=== PATIENT | female | born 1990 | race Caucasian/White ===

== ENCOUNTER 2017-09-29 12:00 | Inpatient (IN) | payer BC, SELFPAY ==
[2017-09-29 14:31] LABS: Absolute Monocytes 1.3 K/uL (0.1-1.3); Basophils % 0.1 % (0-1.3); Eosinophils % 1.9 % (0-4.4); Hematocrit 44.6 % (36.0-45.0); Lymphocytes % 13.6 % (15.3-44.8); MCH 28.5 pg (27.0-35.0); MCV 86.7 fL (80-100); MPV 7.6 fL (7.6-11.3); Monocytes % 8.9 % (3.3-12.3); Protime INR 1.18; RBC Red Blood Cell Count 5.15 M/uL (3.86-4.86)
[2017-09-29 14:42] LABS: Bicarbonate 26 mEq/L (21-31); Glucose Level 90 mg/dL (65-120); Potassium 3.6 mEq/L (3.6-5.0); Sodium Level 139 mEq/L (135-145)
[2017-09-29 14:49] LABS: ALT/SGPT 75 IU/L (10-60); AST/SGOT 51 IU/L (10-42); Albumin 4.7 g/dL (3.2-5.5); Alkaline Phosphatase 38 IU/L (42-121); BUN Blood Urea Nitrogen 7 mg/dL (6-20); Bilirubin Direct 0.2 mg/dL (0-0.2); Protein, Total 8.7 g/dL (6.0-8.3)
--- NOTE | 2017-09-29 14:51 | RAD REPORT ---
EXAM DESCRIPTION: RAD - Chest Single View - 09/29/2017 2:31 pm CLINICAL HISTORY: Difficulty breathing, shortness of breath COMPARISON: November 2011 TECHNIQUE: AP portable chest image was obtained 1418 hours . FINDINGS: Lungs are clear. Heart and vasculature are normal. No measurable pleural effusion and no p neumothorax. No gross bony abnormality seen. No acute aortic findings suspected. Right base opacifica tion on the prior study has cleared with no underlying mass or scarring remaining. Trachea is midline . No suspicious change from the prior study. IMPRESSION: No acute cardiopulmonary process.
[2017-09-29] MEDS ORDERED: CEFTRIAXONE/SWI 1gm 1 GM/10 ML SYR ONE (14:53)
[2017-09-29] MEDS ORDERED: METRONIDAZOLE 500mg IVPB 500 MG/100 ML BAG IV ONE (14:53)
[2017-09-29] MEDS ORDERED: KETOROLAC 30 MG/ML INJ ONE (15:05)
--- NOTE | 2017-09-29 15:24 | RAD REPORT ---
EXAM DESCRIPTION: CT - Soft Tissue Neck W/Contr - 09/29/2017 3:05 pm CLINICAL HISTORY: Infected tooth, soft tissue swelling, currently on antibiotic therapy TECHNIQUE: During dynamic enhancement using 100 milliliters nonionic IV contrast, axial 5 millimeter thick images of the neck were obtained. All CT scans are performed using dose optimization technique as appropriate and may include automated exposure control or mA/KV adjustment according to patient size. FINDINGS: Prominent area of soft tissue swelling and edema present along the medial margin of the ma ndible from midline to the angle of the mandible. No significant edema or soft tissue on the outer ma rgin of the mandible. No defined abscess or drainable fluid collections seen within the area of soft tissue swelling. The inflammatory changes do displace the musculature along the floor the mouth towar ds the midline. Patient has numerous small reactive type lymph nodes. Largest is 15 mm. Most are well under [address] in size. No necrotic or abscessed lymph nodes seen. No tonsillar abscess. No abnormal soft palate or base of the tongue abnormalities seen. Bilateral parotid and right submandibular glands are normal. Left submandibular gland may be minimall y secondarily involved by the left floor the mouth inflammatory process. No thyroid gland abnormality. Laryngeal structures are normal. No erosive or destructive bone process. Globes and orbital contents are normal. Mastoid air cells are clear. No worrisome paranasal sinus finding. There is some minimal ethmoid mucosal thickening. IMPRESSION: Prominent soft tissue edema and swelling along the medial margin of the mandible. No abs cess or drainable fluid collection. Numerous reactive type lymph nodes in the left-side of the neck with no necrotic or abscessed lymph n odes. No acute or destructive bone process.
[2017-09-29] MEDS ORDERED: NA CHLORIDE 0.9% 1,000 ML ONE (15:41)
--- NOTE | 2017-09-29 16:25 | ER ---
Nurse's Notes [facility] Name: Wei Davey Age: 27 yrs Sex: Female : 1990 Arrival Date: 09/29/2017 Time: 12:04 Bed 26 Private MD: Diagnosis: Cellulitis and abscess of mouth Presentation: 09/29 12:35 Presenting complaint: Patient states: " I am having trouble breathing. I have an ph infected tooth and I think I have a respiratory and sinus infection. I have been hospitalized for pneumonia before." Reports chest pain, cough, fever TMAX 103, SOB, dizziness, nausea, swelling to L side of jaw. Currently taking Clindamycin for dental infection. Transition of care: patient was not received from another setting of care. Onset of symptoms was September 29, 2017. Care prior to arrival: None. 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 - Social history:: Smoking status: Patient/guardian denies using tobacco. Screenin:20 Abuse screen: Denies threats or abuse. Denies injuries from another. Nutritional kr2 screening: No deficits noted. Tuberculosis screening: No symptoms or risk factors identified. Fall Risk None identified. Assessment: 13:20 General: Appears in no apparent distress. comfortable, well groomed, well developed, kr2 well nourished, Behavior is calm, cooperative, appropriate for age. Pain: Complains of pain in left jaw, chest Pain radiates to neck Pain currently is 7 out of 10 on a pain scale. Quality of pain is described as aching, "tight feeling" Pain began gradually, Is continuous, Alleviated by medications. Neuro: Level of Consciousness is awake, alert, obeys commands, Oriented to person, place, time, situation, Appropriate for age. Cardiovascular: Heart tones S1 S2 present Capillary refill < 3 seconds in bilateral fingers Patient's skin is warm and dry. Respiratory: Reports cough that is productive, Airway is patent Respiratory effort is even, unlabored, Respiratory pattern is regular, symmetrical. GI: Abdomen is flat, non-distended. : No signs and/or symptoms were reported regarding the genitourinary system. EENT: Nares are clear bilaterally Oral mucosa is moist. Derm: Skin is intact, is healthy with good turgor, Skin is pink, warm \\T\\ dry. Musculoskeletal: Circulation, motion, and sensation intact. 15:25 Reassessment: Patient and/or family updated on plan of care and expected duration. Pain kr2 level reassessed. Patient is alert, oriented x 3, equal unlabored respirations, skin warm/dry/pink. States pain was relieved with Toradol. 16:30 Reassessment: Patient appears in no apparent distress at this time. Patient and/or kr2 family updated on plan of care and expected duration. Pain level reassessed. Patient is alert, oriented x 3, equal unlabored respirations, skin warm/dry/pink. 17:13 Reassessment: Patient appears in no apparent distress at this time. Patient and/or kr2 family updated on plan of care and expected duration. Pain level reassessed. Patient is alert, oriented x 3, equal unlabored respirations, skin warm/dry/pink. Patient denies pain at this time. Vital Signs: 12:43 BP 162 / 106; Pulse 117; Resp 20; Temp 98.2(O); Pulse Ox 97% on R/A; Weight 127.01 kg; ph Height 5 ft. 8 in. (172.72 cm); Pain 5/10; 15:27 BP 145 / 96; Pulse 95; Resp 17; Pulse Ox 97% on R/A; kr2 17:13 BP 111 / 96; Pulse 92; Resp 17; Pulse Ox 99% on R/A; kr2 12:43 Body Mass Index 42.57 (127.01 kg, 172.72 cm) ph ED Course: 12:04 Patient arrived in ED. as 12:39 Triage completed. ph 12:44 Arm band placed on. EKG completed in triage. Results shown to MD. ph 13:10 Adam Winchester MD is Attending Physician. gs 13:15 Patient has correct armband on for positive identification. Placed in gown. Bed in low kr2 position. Call light in reach. Side rails up X2. Adult w/ patient. traffic monitor specialist on. Pulse ox on. NIBP on. Door closed. Lights dimmed. Warm blanket given. Head of bed elevated. 13:15 Patient maintains SpO2 saturation greater than 95% on room air. kr2 13:20 Leigha Rivera, BENNY is Primary Nurse. kr2 14:28 X-ray completed. Portable x-ray completed in exam room. Patient tolerated procedure kp1 well. 14:29 Radiology exam delayed due to test not completed at this time. nb1 14:39 Urine collected: clean catch specimen, johanna colored. dh3 15:04 CT completed. Patient tolerated procedure well. Patient moved back from CT. nb1 16:20 Janet Fowler MD is Hospitalizing Provider. gs 17:14 No provider procedures requiring assistance completed. Patient admitted, IV remains in kr2 place. Administered Medications: 14:42 Drug: Rocephin - (cefTRIAXone) 1 grams Route: IVPB; Infused Over: 30 mins; Site: right kr2 antecubital; 15:00 Follow up: Response: No adverse reaction; IV Status: Completed infusion kr2 14:42 Drug: Flagyl 500 mg Volume: 100 ml; Route: IVPB; Rate: 200 ml/hr; Infused Over: 30 kr2 mins; Site: right antecubital; 16:00 Follow up: Response: No adverse reaction; IV Status: Completed infusion kr2 14:48 Drug: TORadol 30 mg Route: IVP; Site: right antecubital; kr2 15:25 Follow up: Response: No adverse reaction; Pain is decreased kr2 15:07 CANCELLED (Duplicate Order): TORadol 30 mg IVP once gs 15:25 Drug: NS 0.9% 1000 ml Route: IV; Rate: 1 bolus; Site: right antecubital; kr2 17:37 Follow up: Response: No adverse reaction; IV Status: Completed infusion kr2 Point of Care Testing: Blood Glucose: 14:03 Blood Glucose: 87 mg/dL; dh3 Ranges: Outcome: 16:24 Decision to Hospitalize by Provider. gs 17:15 Condition: stable kr2 17:35 Admitted to Tele accompanied by tech, via wheelchair, room 220, with chart. kr2 17:35 Instructed on the need for admit, Demonstrated understanding of instructions. 17:38 Patient left the ED. kr2 Signatures: Natasha Krueger Patricia, RN RN ph Eli Lauren kp1 Melba Ryan 3 Adam Winchester MD MD Niecy Ortiz 1 Leigha Rivera, RN RN kr2 Corrections: (The following items were deleted from the chart) 12:43 12:35 Presenting complaint: Patient states: " I am having trouble bleeding. I have an ph infected tooth and I think I have a respiratory and sinus infection. I have been hospitalized for pneumonia before." Reports chest pain, cough, fever TMAX 103, SOB, dizziness, nausea, swelling to L side of jaw. Currently taking Clindamycin for dental infection. ph 15:35 15:27 Pulse 95bpm; Resp 17bpm; Pulse Ox 97% RA; kr2 kr2
--- NOTE | 2017-09-29 16:25 | EDPHYS ---
Physician Documentation [facility] Name: Wei Davey Age: 27 yrs Sex: Female : 1990 Arrival Date: 09/29/2017 Time: 12:04 Bed 26 Private MD: ED Physician Adam Winchester HPI: 09/29 16:15 This 27 yrs old Female presents to ER via Ambulatory with complaints of gs Fever, facial swelling. 16:17 The patient presents with swelling. The problem is located in the left jaw. Onset: The gs symptoms/episode began/occurred 3 day(s) ago. Duration: The symptoms are continuous. Modifying factors: the symptoms are aggravated by opening mouth. Associated signs and symptoms: Pertinent positives: dysphagia, fever, pain, swelling. Severity of symptoms: At their worst the symptoms were severe, in the emergency department the symptoms are unchanged. The patient has not experienced similar symptoms in the past. The patient has been recently seen by a physician: dr davis on saturday. 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 - Social history:: Smoking status: Patient/guardian denies using tobacco. ROS: 16:17 All other systems are negative. gs 16:17 Respiratory: Positive for cough. gs Exam: 16:17 Constitutional: The patient appears alert, awake. gs 16:17 Head/Face: Normocephalic, atraumatic. Eyes: Pupils equal round and reactive to light, gs extra-ocular motions intact. Lids and lashes normal. Conjunctiva and sclera are non-icteric and not injected. Cornea within normal limits. Periorbital areas with no swelling, redness, or edema. Chest/axilla: Normal chest wall appearance and motion. Nontender with no deformity. No lesions are appreciated. Cardiovascular: Regular rate and rhythm with a normal S1 and S2. No gallops, murmurs, or rubs. Normal PMI, no JVD. No pulse deficits. Respiratory: Lungs have equal breath sounds bilaterally, clear to auscultation and percussion. No rales, rhonchi or wheezes noted. No increased work of breathing, no retractions or nasal flaring. Abdomen/GI: Soft, non-tender, with normal bowel sounds. No distension or tympany. No guarding or rebound. No evidence of tenderness throughout. Back: No spinal tenderness. No costovertebral tenderness. Full range of motion. 16:17 Skin: Warm, dry with normal turgor. Normal color with no rashes, no lesions, and no evidence of cellulitis. MS/ Extremity: Pulses equal, no cyanosis. Neurovascular intact. Full, normal range of motion. Neuro: Awake and alert, GCS 15, oriented to person, place, time, and situation. Cranial nerves II-XII grossly intact. Motor strength 5/5 in all extremities. Sensory grossly intact. Cerebellar exam normal. Normal gait. 16:17 ENT: Mouth: Tongue: not elevated, unable to open mouth. 16:17 Neck: External neck: swelling, tenderness, of the submental area and left submandibular area. Vital Signs: 12:43 BP 162 / 106; Pulse 117; Resp 20; Temp 98.2(O); Pulse Ox 97% on R/A; Weight 127.01 kg; ph Height 5 ft. 8 in. (172.72 cm); Pain 5/10; 15:27 BP 145 / 96; Pulse 95; Resp 17; Pulse Ox 97% on R/A; kr2 17:13 BP 111 / 96; Pulse 92; Resp 17; Pulse Ox 99% on R/A; kr2 12:43 Body Mass Index 42.57 (127.01 kg, 172.72 cm) ph MDM: 13:12 Patient medically screened. gs 16:17 Differential diagnosis: dental caries, dental abscess, neck fas, sub mandiblar gs infection. Data reviewed: vital signs, nurses notes. Physician consultation: Williams Davis DDS and will see patient in inpatient room, would like admission per Dr. Janet Fowler MD. 09/29 13:46 Order name: Basic Metabolic Panel 09/29 13:46 Order name: Blood Culture Adult (2) 09/29 13:46 Order name: CBC with Diff 09/29 13:46 Order name: Lactate 09/29 13:46 Order name: LFT's 09/29 13:46 Order name: Procalcitonin 09/29 13:46 Order name: Protime (+inr) 09/29 13:46 Order name: Troponin (emerg Dept Use Only) 09/29 14:04 Order name: Glucose, Ancillary Testing; Complete Time: 15:05 EDFL 09/29 14:34 Order name: Lactate; Complete Time: 15:05 [facility] 09/29 14:38 Order name: Protime (+INR); Complete Time: 15:04 EDFL 09/29 14:38 Order name: Urine Dipstick--Ancillary (enter results) 09/29 14:38 Order name: Urine --Ancillary (enter results) 09/29 14:39 Order name: CBC with Automated Diff; Complete Time: 15:05 [facility] 09/29 13:03 Order name: Chest Pa And Lat (2 Views) XRAY 09/29 13:46 Order name: Chest Single View XRAY 09/29 13:46 Order name: CT Soft Tissue Neck W/contr 09/29 14:43 Order name: Basic Metabolic Panel; Complete Time: 15:05 [facility] 09/29 14:49 Order name: Liver (Hepatic) Function; Complete Time: 15:05 [facility] 09/29 14:50 Order name: Troponin (Emerg Dept Use Only); Complete Time: 15:05 [facility] 09/29 14:51 Order name: RAD; Complete Time: 15:05 [facility] 09/29 15:16 Order name: Procalcitonin; Complete Time: 15:21 [facility] 09/29 15:25 Order name: CT; Complete Time: 15:33 [facility] 09/29 16:32 Order name: Urine --Ancillary [facility] 09/29 16:32 Order name: Urine Dipstick-Ancillary [facility] 09/29 13:46 Order name: Accucheck; Complete Time: 14:04 09/29 13:46 Order name: Cardiac monitoring; Complete Time: 13:57 09/29 13:46 Order name: EKG - Nurse/Tech; Complete Time: 14:04 09/29 13:46 Order name: IV Saline Lock - Large Bore; Complete Time: 13:57 09/29 13:46 Order name: Labs collected and sent; Complete Time: 13:58 09/29 13:46 Order name: O2 Per Protocol; Complete Time: 13:58 gs 09/29 13:46 Order name: O2 Sat Monitoring; Complete Time: 13:58 gs Administered Medications: 14:42 Drug: Rocephin - (cefTRIAXone) 1 grams Route: IVPB; Infused Over: 30 mins; Site: right kr2 antecubital; 15:00 Follow up: Response: No adverse reaction; IV Status: Completed infusion kr2 14:42 Drug: Flagyl 500 mg Volume: 100 ml; Route: IVPB; Rate: 200 ml/hr; Infused Over: 30 kr2 mins; Site: right antecubital; 16:00 Follow up: Response: No adverse reaction; IV Status: Completed infusion kr2 14:48 Drug: TORadol 30 mg Route: IVP; Site: right antecubital; kr2 15:25 Follow up: Response: No adverse reaction; Pain is decreased kr2 15:07 CANCELLED (Duplicate Order): TORadol 30 mg IVP once gs 15:25 Drug: NS 0.9% 1000 ml Route: IV; Rate: 1 bolus; Site: right antecubital; kr2 17:37 Follow up: Response: No adverse reaction; IV Status: Completed infusion kr2 Point of Care Testing: Blood Glucose: 14:03 Blood Glucose: 87 mg/dL; dh3 Ranges: Critical Glucose Levels:Adult <50 mg/dl or >400 mg/dl <40 mg/dl or >180 mg/dl Disposition: 09/29/17 16:24 Hospitalization ordered by Janet Fowler for Inpatient Admission. Preliminary diagnosis is Cellulitis and abscess of mouth. - Bed requested for Telemetry/MedSurg (Inpatient). - Status is Inpatient Admission. kr2 - Condition is Stable. - Problem is new. - Symptoms have improved. UTI on Admission? No Signatures: Dispatcher [employer] EDMS Whit Barry Patricia, RN RN Adam Winchester MD MD Leigha Rivera RN RN kr2 Corrections: (The following items were deleted from the chart) 15:07 15:04 TORadol 30 mg IVP once ordered. [facility]
--- NOTE | 2017-09-29 16:31 | P.HP ---
Certification for Inpatient Patient admitted to: Observation With expected LOS: <2 Midnights Patient will require the following post-hospital care: None Practitioner: I am a practitioner with admitting privileges, knowledge of patient current condition, hospital course, and medical plan of care. Services: Services provided to patient in accordance with Admission requirements found in Title 42 Section 412.3 of the Code of Federal Regulations Patient History Date of Service: 09/29/17 Primary Care Provider: None Reason for admission: Periodontal Pain History of Present Illness: 27-year-old female with no significant past medical history who presented to the ED complaining of having some left shoulder pain. Patient stated that she went to oral surgeon to on Saturday and was told that she has been having some infection in her tooth along with higher wisdom tooth that needs to be removed. She was given oral antibiotics. She has been doing warm compress since Saturday and noticed that her swelling has gone down however the pain has not been improving at all and the she decided to come to the ER. Patient stated that she started also having some fever and chills and she had a fever 1 of 3 last night which broke finally after she took some Tylenol at home. No other complaints to offer no other symptoms to offer is well. Allergies hydrocodone [Hydrocodone] Allergy (Verified 12/03/11 08:37) Itching Home Medications: Acetaminophen [Tylenol 8 Hour] 650 mg PO Q4HP PRN 12/03/11 Albuterol Neb [Proventil 0.083% Neb Soln] 2.5 mg IH Q4HP PRN #1 amp 12/05/11 Albuterol Sulfate [Proair Hfa] 2 puff IH Q4HP PRN #1 hfa.aer.ad 12/05/11 Amox/Clavulanate [Augmentin 875-125] 1 each PO BID #20 tab 12/05/11 Azithromycin [Zithromax] 500 mg PO DAILY #0 tablet 12/05/11 Budesonide/Formoterol Fumarate [Symbicort 80-4.5 Mcg Inhaler] 2 puff IH BID #1 hfa.aer.ad 12/05/11 Esomeprazole Magnesium [Nexium] 40 mg PO DAILY #30 lida. 12/05/11 Fluconazole [Diflucan] 150 mg PO UD #2 tablet 12/05/11 Fluticasone [Flonase 50MCG Nasal [place]] 2 sprays NS BID #1 btl 12/05/11 Olopatadine [Patanol Opth*] 5 ml NA BIDP PRN #1 btl 12/05/11 Prednisone 20 mg PO DAILY #5 tablet 12/05/11 - Social History Alcohol use: No CD- Drugs: No Caffeine use: Yes Review of Systems 10-point ROS is otherwise unremarkable Physical Examination - Physical Exam General: Alert, In no apparent distress, Oriented x3 HEENT: Atraumatic, PERRLA, Mucous membr. moist/pink, EOMI, Sclerae nonicteric Neck: Supple, Other (Swallowing okay, Mild Swelling noted on the left jaw and chin area. ) Respiratory: Clear to auscultation bilaterally, Normal air movement Cardiovascular: Regular rate/rhythm, Normal S1 S2 Gastrointestinal: Normal bowel sounds, No tenderness Musculoskeletal: No tenderness Integumentary: No rashes Neurological: Normal gait, Normal speech, Normal strength at 5/5 x4 extr, Normal tone, Normal affect Lymphatics: No axilla or inguinal lymphadenopathy - Studies Laboratory Data (last 24 hrs) 09/29/17 14:20: PT 14.0 H, INR 1.18 09/29/17 14:20: WBC 14.6 H, Hgb 14.7, Hct 44.6, Plt Count 292 09/29/17 14:20: Sodium 139, Potassium 3.6, BUN 7, Creatinine 0.57, Glucose 90, Total Bilirubin 1.0, AST 51 H, ALT 75 H, Alkaline Phosphatase 38 L Assessment and Plan - Problems (Diagnosis) (1) Periodontal disease Current Visit: Yes Status: Acute Plan: Pain in the left jaw with possible infection -OMF consulted from ED and will see pt in the hospital -IV clindamycin -IV fluids Discharge Plan: Home Plan to discharge in: 24 Hours - Advance Directives Does patient have a Living Will: No Does patient have a Durable POA for Healthcare: No - Code Status/Comfort Care Code Status Assessed: Yes Critical Care: No
[2017-09-29 16:32] LABS: Urine Blood TRACE (NEG); Urine Glucose NEGATIVE (NEG); Urine Protein 2+ (NEG); Urine Specific Gravity 1.025 (1.005-1.030)
[2017-09-29] MEDS ORDERED: DEXAMETHASONE 10 MG/ML VIAL IV ONE ×2 (17:00→18:00)
[2017-09-29] MEDS: NA CHLORIDE 0.9% 1,000 ML IV SCH (17:00)
[2017-09-29 18:16] VITALS: BMI 39.2
[2017-09-29] MEDS: CLINDAMYCIN INJ 600 MG in NA CHLORIDE 0.9% 50 ML IV SCH (18:40)
[2017-09-29] MEDS: HYDROCODONE/APAP 10/325 TAB PO PRN (20:45)
[2017-09-29] MEDS ORDERED: INFLUENZA VACCINE (for 3y+) 0.5 ML DOSE IMVAC ONE (21:00)
[2017-09-29 23:29] VITALS: O2SAT 98
[2017-09-30 01:00] LABS: Urine Appearance CLOUDY; Urine Blood TRACE (NEG); Urine Color DK YELLOW; Urine Glucose NEGATIVE (NEG); Urine Protein 1+ (NEG); Urine Specific Gravity >=1.030 (1.005-1.030)
[2017-09-30 01:07] LABS: Urine Bilirubin NEGATIVE (NEG); Urine Microscopic Reflex ORDER UMIC
[2017-09-30 01:13] LABS: Urine Bacteria <20 /HPF (<20); Urine Culture Reflex Order REFLEXED; Urine RBC <5 /HPF (NONE SEEN)
[2017-09-30] MEDS: CLINDAMYCIN INJ 600 MG in NA CHLORIDE 0.9% 50 ML IV SCH ×3 (01:15→17:14)
[2017-09-30] MEDS: NA CHLORIDE 0.9% 1,000 ML IV SCH ×3 (02:54→22:14)
[2017-09-30 06:05] LABS: Absolute Lymphocytes (CBC) 1.2 K/uL (0.7-4.9); Absolute Monocytes 0.3 K/uL (0.1-1.3); Absolute Neutrophil 11.2 K/uL (1.8-8.0); Basophils % 0.1 % (0-1.3); Hematocrit 40.3 % (36.0-45.0); Lymphocytes % 9.6 % (15.3-44.8); MCH 28.7 pg (27.0-35.0); MCV 86.6 fL (80-100); MPV 7.9 fL (7.6-11.3); Monocytes % 2.5 % (3.3-12.3); RBC Red Blood Cell Count 4.66 M/uL (3.86-4.86)
[2017-09-30 07:09] LABS: ALT/SGPT 64 IU/L (10-60); AST/SGOT 40 IU/L (10-42); Albumin 3.7 g/dL (3.2-5.5); Alkaline Phosphatase 40 IU/L (42-121); BUN Blood Urea Nitrogen 9 mg/dL (6-20); Bicarbonate 25 mEq/L (21-31); Bilirubin Total 0.8 mg/dL (0.3-1.2); Glucose Level 115 mg/dL (65-120); Potassium 4.4 mEq/L (3.6-5.0); Protein, Total 6.9 g/dL (6.0-8.3); Sodium Level 135 mEq/L (135-145)
[2017-09-30] MEDS ORDERED: ALBUTEROL INHALER 60 PUFF/8 GM IH PRN (08:10)
[2017-09-30] MEDS ORDERED: ALBUTEROL 2.5 MG/3 ML NEB SOL IH PRN (08:10)
[2017-09-30] MEDS: HYDROCODONE/APAP 10/325 TAB PO PRN ×3 (09:31→22:13)
--- NOTE | 2017-09-30 11:11 | EKG ---
Test Date: 2017-09-29 Test Time: 12:38:52 Library Paraprofessional: NELSON MEASUREMENT RESULTS: Intervals: Rate: 114 TN: 124 QRSD: 82 QT: 338 QTc: 465 [place]: P: 43 TN: 124 QRS: 0 T: 40 INTERPRETIVE STATEMENTS: Sinus tachycardia Moderate voltage criteria for LVH, may be normal variant Borderline ECG No previous ECG available for comparison Electronically Signed On 09-30-17 11:10:14 CDT by Caden Ayers
--- NOTE | 2017-09-30 17:11 | PN ---
Date of Progress Note: 09/30/2017 The patient seen and examined. Chart reviewed and case discussed with RN. Subjective: The patient awaiting Dr. Davis's evaluation. The patient states her swelling and pain is significantly improved. Family at the bedside. Treatment plan explained. All questions answered . Review of Systems: Negative except as above. Medications: Reviewed. Physical Examination: Vital Signs: Temperature 97.9, heart rate 81, blood pressure 121/68, respirations 16, O2 96% on room air. General: Awake, alert, oriented x3. No acute distress. Morbidly obese female, somewhat ill-appeari ng. CV: S1 and S2. No murmur. Peripheral pulses present bilaterally. Respiratory: Clear to auscultation bilaterally. No wheezing. Abdomen: Soft, nontender, nondistended. Positive bowel sounds. Extremities: No clubbing, cyanosis, or edema. Neurologic: Nonfocal. HEENT: Oropharynx is clear. Some mild swelling on the left mandibular area. Tenderness to palpatio n. Lymph: The patient does have positive lymphadenopathy on the submandibular area and posterior auricu lar. Laboratory Data: Sodium 135, potassium 4.4, chloride 103, CO2 25, BUN 9, creatinine 0.49, glucose 11 5, lactic acid 6.8, calcium 9.2, AST 40, ALT 64, alkaline phosphatase 40. WBC 12.7, H and H 13.4, 40 .3, platelets 296, neutrophils 87%. Blood cultures and sputum cultures pending. Assessment And Plan: A 27-year-old female with: 1.Periodontal disease. We will continue with IV antibiotics. Dr. Davis, [place] [facility] [place] [place]. Appreciate his input. We will follow up with cultures. Continue liquid diet. Resume home medications as appropriate. 2.Obesity. BMI 39.3. SA/MODL Voice ID: [id number] Report ID: [id number]
[2017-10-01] MEDS: CLINDAMYCIN INJ 600 MG in NA CHLORIDE 0.9% 50 ML IV SCH ×2 (00:19→08:32)
[2017-10-01] MEDS: HYDROCODONE/APAP 10/325 TAB PO PRN ×2 (04:09→12:47)
[2017-10-01 06:03] LABS: Absolute Monocytes 1.2 K/uL (0.1-1.3); Absolute Neutrophil 7.9 K/uL (1.8-8.0); Basophils % 0.1 % (0-1.3); Eosinophils % 0.7 % (0-4.4); Hematocrit 35.3 % (36.0-45.0); Lymphocytes % 24.8 % (15.3-44.8); MCH 29.1 pg (27.0-35.0); MCV 86.2 fL (80-100); MPV 7.5 fL (7.6-11.3); Monocytes % 9.5 % (3.3-12.3)
[2017-10-01] MEDS ORDERED: PANTOPRAZOLE 40MG TABLET PO SCH (06:30)
[2017-10-01] MEDS: NA CHLORIDE 0.9% 1,000 ML IV SCH (08:33)
[2017-10-01 12:32] VITALS: BP 122/84; TEMP 98.2
--- NOTE | 2017-10-02 04:01 | DS ---
Date of Discharge: 10/01/2017 Consultants: Williams Davis DDS, M.D., Oral Surgeon. Admitting Diagnoses: 1.Periodontal disease. 2.Obesity, BMI 39.3. Discharge Diagnoses: 1.Periodontal disease. 2.Obesity, BMI 39.3. Hospital Course: The patient is a 27-year-old female, who came in with periodontal pain. The patien anthony had gone to her oral surgeon on Saturday and had infection in her upper wisdom tooth, which needed to be removed. The patient failed outpatient antibiotic treatment, came in with some swelling of her n eliazar and tongue. Also had some fever. The patient was started on broad-spectrum IV antibiotics. Dr. Davis with steam blocker was consulted. The patient's white count improved. Her pain and swelling also improved. The patient did have some mildly elevated LFTs, which trended down. The patient's blood cultures remained negative to date. Dr. Davis recommended following up in his office for the patient's wisdom tooth extraction. Her urine culture did show some gram-negative cristobal s and 2+ yeast, which were covered with antibiotics. The patient was able to tolerate her diet. Her swelling had improved. White count was improving. Blood cultures were negative. The patient was t hen cleared for discharge in a stable condition. Activity: As tolerated. Medications: As per medication reconciliation list. Followup: Follow up with primary care physician in 2-3 days, with oral and maxillofacial surgeon, Dr Ashley Davis within 1 week for tooth extraction. Return to ER for worsening condition. Total time spent discharging the patient was 35 minutes. Physical Examination: General: Awake, alert, oriented, no acute distress, morbidly obese female. CV: S1, S2. No murmurs. Respiratory: Moving air well bilaterally. No wheezing. Abdomen: Soft, nontender, and nondistended. Positive bowel sounds. Extremities: No clubbing, cyanosis, or edema. Neurologic: Nonfocal. HEENT: Oropharynx is clear. No exudates. Some mild erythema around the upper mandibular gums. No tongue swelling. Lymphs: Some positive submandibular and postauricular nodes. SA/MODL Voice ID: [id number] Report ID: [id number]
== END 2017-10-01 13:30 | disposition home or self-care (01) | DRG 159 ==
LOC: ER 12:00 → ERHOLD 16:26 → 2ND 17:22
PROVIDERS: ADMIT Family Medicine; ATTEND Family Medicine
DX: K05.6 Periodontal disease, unspecified (principal); E66.9 Obesity, unspecified; Z68.39 Body mass index [BMI] 39.0-39.9, adult
CPT/HCPCS: 36415; 70491; 71045; 80048; 80053; 80076; 81003; 81015; 81025; 82962; 83605; 84145; 84484; 85025; 85610; 87040; 87077; 87086; 87088; 87186; 93005; 96361; 96365; 96368; 96375; 99285; J0696; J1100; J7030; Q9967

== ENCOUNTER 2021-02-06 18:30 | Emergency (ER) | payer SELFPAY ==
--- NOTE | 2021-02-06 22:07 | RAD REPORT ---
EXAM DESCRIPTION: RAD - Chest Pa And Lat (2 Views) - 02/06/2021 10:00 pm CLINICAL HISTORY: COUGH Chest pain. COMPARISON: Chest Single View dated 09/29/2017; CHEST PA AND LAT 2 VIEW dated 12/03/2011 FINDINGS: Mild linear opacities in both lung bases may indicate early viral infection/bronchitis. Th e heart is normal in size. No displaced fractures.
[2021-02-06] MEDS ORDERED: HYDROCODONE/CHLORPHEN 5 ML/OSYR ONE (22:11)
--- NOTE | 2021-02-06 22:47 | ER ---
Nurse's Notes [facility] Name: Wei Davey Age: 31 yrs Sex: Female : 1990 Arrival Date: 02/06/2021 Time: 18:35 Bed DIS4 Private MD: Diagnosis: Cough;Unspecified conjunctivitis Presentation: 02/06 20:02 Chief complaint: Patient states: For about a week cough, congestion, runny nose, vg1 difficulty breathing. States at night has a hard time catching breath. Denies NVD. Coronavirus screen: Client denies travel out of the [place] in the last 14 days. Client presents with at least one sign or symptom that may indicate coronavirus-19. Standard/surgical mask placed on the client. Ebola Screen: Patient negative for fever greater than or equal to 101.5 degrees Fahrenheit, and additional compatible Ebola Virus Disease symptoms. Resp Distress? No respiratory distress is noted at this time. Initial Sepsis Screen: Does the patient meet any 2 criteria? No. Patient's initial sepsis screen is negative. Does the patient have a suspected source of infection? No. Patient's initial sepsis screen is negative. Risk Assessment: Do you want to hurt yourself or someone else? Patient reports no desire to harm self or others. Onset of symptoms was January 30, 2021. 20:02 Method Of Arrival: Ambulatory vg1 20:02 Acuity: ROBERTO 3 vg1 Triage Assessment: 20:02 General: Appears in no apparent distress. comfortable, Behavior is calm, cooperative. vg1 Pain: Complains of pain in mid-sternal area Pain currently is 2 out of 10 on a pain scale. Respiratory: Reports shortness of breath on exertion cough that is productive, pain with cough Airway is patent Respiratory effort is even, unlabored, Breath sounds are clear bilaterally. 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 - Social history:: Smoking status: Patient denies any tobacco usage or history of. Screenin:25 Abuse screen: Denies threats or abuse. Denies injuries from another. Nutritional ld1 screening: No deficits noted. Tuberculosis screening: No symptoms or risk factors identified. Fall Risk None identified. Assessment: 21:25 General: Appears in no apparent distress. comfortable, Behavior is calm, cooperative, ld1 appropriate for age. Pain: Denies pain. Neuro: Level of Consciousness is awake, alert, obeys commands, Oriented to person, place, time, situation. Cardiovascular: Capillary refill < 3 seconds Patient's skin is warm and dry. Respiratory: Reports cough that is non-productive. Respiratory: Airway is patent Respiratory effort is even, unlabored, Respiratory pattern is regular, symmetrical. Respiratory: GI: Abdomen is flat, non-distended. : No signs and/or symptoms were reported regarding the genitourinary system. EENT: No signs and/or symptoms were reported regarding the EENT system. Derm: No signs and/or symptoms reported regarding the dermatologic system. Musculoskeletal: No signs and/or symptoms reported regarding the musculoskeletal system. Vital Signs: 20:02 BP 153 / 110; Pulse 111; Resp 18; Temp 98.3; Pulse Ox 96% ; Weight 139.71 kg; Height 5 vg1 ft. 8 in. (172.72 cm); Pain 2/10; 21:25 BP 145 / 106; Pulse 96; Resp 17; Pulse Ox 98% on R/A; ld1 20:02 Body Mass Index 46.83 (139.71 kg, 172.72 cm) vg1 ED Course: 18:35 Patient arrived in ED. mr 20:02 Arm band placed on Patient placed in waiting room, Patient notified of wait time. vg1 20:05 Triage completed. vg1 20:12 COVID swab sent to lab. Flu and/or RSV swab sent to lab. vg1 21:14 Lynsey Machuca, BENNY is Primary Nurse. ld1 21:20 Mayo Howell NP is PHCP. pm1 21:20 Tony Guerrero MD is Attending Physician. pm1 21:25 Patient has correct armband on for positive identification. Call light in reach. Pulse ld1 ox on. NIBP on. 21:25 Warm blanket given. ld1 21:25 No provider procedures requiring assistance completed. ld1 21:59 Chest Pa And Lat (2 Views) XRAY In Process Unspecified. EDMS 23:01 Patient did not have IV access during this emergency room visit. ld1 Administered Medications: 21:53 Drug: Tussionex Pennkinetic ER (chlorpheniramine-hydrocodone) Suspension 5 ml Route: PO;ld1 21:56 Follow up: Response: No adverse reaction ld1 Outcome: 22:47 Discharge ordered by . pm1 23:01 Discharged to home ambulatory. ld1 23:01 Condition: stable 23:01 Discharge instructions given to patient, Instructed on discharge instructions, follow up and referral plans. medication usage, Demonstrated understanding of instructions, follow-up care, medications, Prescriptions given X 3. 23:01 Patient left the ED. ld1 Signatures: Dispatcher [employer] EDNC CkManasa mr HowellMayo, CONCRETE BLOCK LAYER CONCRETE BLOCK LAYER pm1 Paola Gomez, RN RN vg1 Lynsey Machuca RN RN ld1 Corrections: (The following items were deleted from the chart) 20:06 20:05 Allergies: Amoxicillin; vg1 vg1 20:07 20:02 Pulse 111bpm; Resp 18bpm; Pulse Ox 96%; Temp 98.3F; 139.71 kg; Height 5 ft. 8 vg1 in.; BMI: 46.8; Pain 2/10; vg1
--- NOTE | 2021-02-06 22:47 | EDPHYS ---
Physician Documentation [facility] Name: Wei Davey Age: 31 yrs Sex: Female : 1990 Arrival Date: 02/06/2021 Time: 18:35 Bed DIS4 Private MD: ED Physician Tony Guerrero HPI: 02/06 22:19 This 31 yrs old Female presents to ER via Ambulatory with complaints of pm1 Cough, Congestion, Breathing Difficulty, Fever. 22:19 The patient or guardian reports cough, with no sputum. Onset: The symptoms/episode pm1 began/occurred 1 week(s) ago. Severity of symptoms: in the emergency department the symptoms are unchanged. Modifying factors: The symptoms are alleviated by nothing, the symptoms are aggravated by nothing. Associated signs and symptoms: Pertinent positives: fever, shortness of breath, bilateral eye matting and itching - works at [employer] and concerned that she has pink eye, Pertinent negatives: chest pain, sore throat. The patient has not experienced similar symptoms in the past. The patient has not recently seen a physician. Patient is concerned that she has pneumonia. 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 - Social history:: Smoking status: Patient denies any tobacco usage or history of. ROS: 22:19 ENT: Negative for injury, pain, and discharge, Cardiovascular: Negative for chest pain, pm1 palpitations, and edema. 22:19 Abdomen/GI: Negative for abdominal pain, nausea, vomiting, diarrhea, and constipation, Back: Negative for injury and pain, MS/Extremity: Negative for injury and deformity, Skin: Negative for injury, rash, and discoloration, Neuro: Negative for headache, weakness, numbness, tingling, and seizure. 22:19 Constitutional: Positive for fever, Negative for poor PO intake. 22:19 Eyes: Positive for itching, matting, redness, of the right eye and left eye. 22:19 Respiratory: Positive for cough, shortness of breath. 22:19 All other systems are negative. Exam: 22:19 Constitutional: This is a well developed, well nourished patient who is awake, alert, pm1 and in no acute distress. Head/Face: Normocephalic, atraumatic. 22:19 ENT: Nares patent. No nasal discharge, no septal abnormalities noted. Tympanic membranes are normal and external auditory canals are clear. Oropharynx with no redness, swelling, or masses, exudates, or evidence of obstruction, uvula midline. Mucous membranes moist. Neck: Trachea midline, no thyromegaly or masses palpated, and no cervical lymphadenopathy. Supple, full range of motion without nuchal rigidity, or vertebral point tenderness. No Meningismus. 22:19 Back: No spinal tenderness. No costovertebral tenderness. Full range of motion. Skin: Warm, dry with normal turgor. Normal color with no rashes, no lesions, and no evidence of cellulitis. MS/ Extremity: Pulses equal, no cyanosis. Neurovascular intact. Full, normal range of motion. 22:19 Eyes: Exam is negative for acute changes, Extraocular movements: no acute changes, Conjunctiva: injected, bilaterally. 22:19 Cardiovascular: Exam negative for acute changes, Rate: normal, Rhythm: regular, Pulses: no pulse deficits are appreciated. 22:19 Respiratory: Exam negative for acute changes, respiratory distress, shortness of breath, Breath sounds: are clear throughout. 22:19 Neuro: Exam negative for acute changes, Orientation: is normal, Mentation: is normal, Motor: is normal, moves all fours. Vital Signs: 20:02 BP 153 / 110; Pulse 111; Resp 18; Temp 98.3; Pulse Ox 96% ; Weight 139.71 kg; Height 5 vg1 ft. 8 in. (172.72 cm); Pain 2/10; 21:25 BP 145 / 106; Pulse 96; Resp 17; Pulse Ox 98% on R/A; ld1 20:02 Body Mass Index 46.83 (139.71 kg, 172.72 cm) vg1 MDM: 21:36 Patient medically screened. [facility] 22:19 Data reviewed: vital signs. Data interpreted: Pulse oximetry: on room air is 98 %. pm1 Interpretation: normal. 22:45 Counseling: I had a detailed discussion with the patient and/or guardian regarding: the pm1 historical points, exam findings, and any diagnostic results supporting the discharge/admit diagnosis, lab results, radiology results, the need for outpatient follow up, to return to the emergency department if symptoms worsen or persist or if there are any questions or concerns that arise at home. 22:45 ED course: Patient feels similar to prior pneumonia an would like to get antibiotic pm1 prescription. 02/06 20:10 Order name: Flu; Complete Time: 22:19 vg1 02/06 21:40 Order name: Chest Pa And Lat (2 Views) XRAY; Complete Time: 22:19 pm1 02/06 22:41 Order name: SARS-COV-2 RT PCR; Complete Time: 22:42 EDMS Administered Medications: 21:53 Drug: Tussionex Pennkinetic ER (chlorpheniramine-hydrocodone) Suspension 5 ml Route: PO;ld1 21:56 Follow up: Response: No adverse reaction ld1 Disposition: 02/07 07:34 Co-signature as Attending Physician, Tony Guerrero MD I agree with the assessment and torin plan of care. Disposition Summary: 02/06/21 22:47 Discharge Ordered Location: Home pm1 Problem: new pm1 Symptoms: have improved pm1 Condition: Stable pm1 Diagnosis - Cough pm1 - Unspecified conjunctivitis pm1 Followup: pm1 - With: Emergency Department - When: As needed - Reason: Worsening of condition Followup: pm1 - With: Private Physician - When: 2 - 3 days - Reason: Recheck today's complaints, Continuance of care, Re-evaluation by your physician Discharge Instructions: - Discharge Summary Sheet pm1 - Bacterial Conjunctivitis, Adult pm1 - Cough, Adult pm1 Forms: - Medication Reconciliation Form pm1 - Thank You Letter pm1 - Antibiotic Education pm1 - Prescription Opioid Use pm1 Prescriptions: - Tessalon Perles 100 mg Oral Capsule - take 1 capsule by ORAL route every 8 hours As needed; 15 capsule; Refills: 0, pm1 Product Selection Permitted - Zithromax Z-Rashawn 250 mg Oral Tablet - take 1 tablet by ORAL route as directed for 5 days Day 1 - take two (2) tablets pm1 one time. Day 2, 3, 4 , 5 take one (1) tablet once daily.; 6 tablet; Refills: 0, Product Selection Permitted - polymyxin B sulf-trimethoprim 10,000 unit- 1 mg/mL Ophthalmic drops - instill 1 drop by OPHTHALMIC route every 6 hours for 7 days administer to both pm1 eyes; 1 bottle; Refills: 0, Product Selection Permitted Signatures: Dispatcher [employer] EDMS Tony Guerrero MD MD cha Marinas, Patrick, STUDENT DEVELOPMENT DEAN STUDENT DEVELOPMENT DEAN pm1 Paola Gomez RN RN vg1 Lynsey Machuca RN RN ld1 Corrections: (The following items were deleted from the chart) 02/06 20:06 20:05 Allergies: Amoxicillin; vg1 vg1 21:25 20:11 CORONAVIRUS+.BRZ ordered. EDMS EDMS
[2021-02-06 23:09] VITALS: TEMP 98.3
[2021-02-06 23:11] VITALS: BP 145/106; O2SAT 98
== END 2021-02-06 23:01 | disposition home or self-care (01) ==
LOC: ER 18:30
DX: R05 Cough (principal); H10.9 Unspecified conjunctivitis; J45.909 Unspecified asthma, uncomplicated; Z20.822 Contact with and (suspected) exposure to COVID-19
CPT/HCPCS: 71046; 87804; U0003

== ENCOUNTER 2023-04-25 01:16 | Emergency (ER) | payer SELFPAY ==
--- OUTSIDE RECORDS SUMMARY | 2023-04-25 01:19 | XMS REPORT | Continuity of Care Document ---
:1990 Author Organization [facility] t Address [address] [place] [address] Care Team Providers Name Role Phone KRYSTA EUGENE Primary Care Physician Unavailable Jonathon DAILY, Niko Seo Attending Clinician Forrest Manley MD Attending Clinician Rufus Doran MD Attending Clinician Donna Huerta DO Attending Clinician Emir Kennedy MD Attending Clinician Cj Diop DO Attending Clinician DONNA HUERTA Attending Clinician Unavailable Problems This patient has no known problems. Allergies, Adverse Reactions, Alerts Allergy Allergy Status Severity Reaction(s) Onset Inactive Treating Comm ents Source Name Type Date Date Clinician NO KNOWN Drug Active Univers ALLERGIE Class ity of [facility] Medical Branch Social History Social Habit Start Date Stop Date Quantity Comments Source Exposure to 2022-08-21 2022-08-31 Not sure [facility] SARS-CoV-2 (event) 00:00:00 17:43:00 Medica l Branch Sex Assigned [birth year] [facility] 00:00:00 00:00:00 Medical Branch Smoking Status Start Date Stop Date Source Tobacco smoking consumption [facility] unknown Branch Medications Ordered Filled Start Stop Current Ordering Indication Dosage Frequency Signature Comments Components Source Medication Medication Date Date Medication? Clinician (SIG) Name Name citalopram 0 Yes 40mg 40 mg, Unive rs (CELEXA) 09-02 Oral, ity of tablet 40 15:00: DAILY, [place] mg 00 First dose Medical on [place] [facility] 09/02/22 at 0900, Until Discontinu ed, Routine hydroCHLORO 0 Yes 25mg 25 mg, Univ ers thiazide 09-02 Oral, ity of (ESIDRIX) 15:00: DAILY, [place] tablet 25 00 First dose Medi chauncey mg on [place] [facility] 09/02/22 at 0900, Until Discontinu ed, Routine lisinopriL 0 Yes 40mg 40 mg, Unive rs (PRINIVIL,Z 09-02 Oral, ity of ESTRIL) 15:00: DAILY, [place] tablet 40 00 First dose Medi chauncey mg on [place] [facility] 09/02/22 at 0900, Until Discontinu ed, Routine levothyroxi Yes 25ug 25 mcg, Uni vers ne 09-02 Oral, ity of (SYNTHROID) 12:00: QAM-0600, [place] tablet 25 00 First dose Medi chauncey mcg on [place] [facility] 09/02/22 at 0600, Until Discontinu ed, Routine citalopram 2022- No 40mg 40 mg, Univ ers (CELEXA) 09-02 Oral, ity of tablet 40 02:15: 03:49 ONCE, 1 [place] :00 dose, On [facility] Sat Branch 09/01/22 at 2015, Routine ibuprofen 2022- No 400mg 400 mg, Uni vers (IBU) 09-02 Oral, ity of tablet 400 01:30: 03:49 ONCE, 1 [place] mg 00 :00 dose, On [facility] Sat Branch 09/01/22 at 1930, ELDA LORazepam 2022- No 2mg 2 mg, Univer s (ATIVAN) 09-01 Oral, ity of tablet 2 mg 02:15: 01:50 [place]CE[place] dose, On Medical Fri Branch 08/31/22 at 2015, ELDA Vital Signs Vital Name Observation Time Observation Value Comments Source Systolic blood 2022-09-03 18:18:00 112 mm[Hg] Univer sity of pressure [facility] Diastolic blood 2022-09-03 18:18:00 78 mm[Hg] [facility] Heart rate 2022-09-03 18:18:00 80 /min [facility] Respiratory rate 2022-09-03 18:18:00 20 /min [facility] Oxygen saturation in 2022-09-03 18:18:00 100 /min [facility] Arterial blood by [facility] Pulse oximetry [place] Body temperature 2022-09-02 22:11:00 36.61 Jory [facility] Body weight 2022-08-31 23:47:00 136.079 kg [facility] Procedures Procedure Date / Time Performing Clinician Source Performed POCT GLUCOSE (AUTOMATED) 2022-09-01 20:01:00 Rufus Doran [facility] POCT GLUCOSE (AUTOMATED) 2022-09-01 15:36:00 Andreea Rufus [facility] POCT GLUCOSE (AUTOMATED) 2022-09-01 02:36:00 Niko Holt [facility] TEST, SERUM 2022-09-01 01:45:00 Niko Holt [facility] THYROID STIMULATING 2022-09-01 01:45:00 Niko Holt [facility] HORMONE [facility] COMP. METABOLIC PANEL 2022-09-01 01:45:[address] [facility] ([id number]) [facility] SALICYLATE 2022-09-01 01:45:00 Niko Holt [facility] ETHANOL 2022-09-01 01:45:00 Niko Holt [facility] CBC WITH DIFF 2022-09-01 01:45:00 Niko Holt [facility] URINALYSIS 2022-09-01 01:38:00 Niko Holt [facility] URINE DRUG (IMMUNOASSAY) 2022-09-01 01:38:00 Niko Holt [facility] DRUG Medical [facility] SCREEN W/O REFLEX COVID-19 (ID NOW RAPID 2022-09-01 01:26:00 [facility] TESTING) Medical Branch LAB ONLY COVID 2022-09-01 01:26:00 Niko Holt [employer] [place] INTERPRETATION [facility] CONSENT/REFUSAL FOR 2022-08-31 23:33:16 Doctor Unassigned, Isidro [facility] DIAGNOSIS AND TREATMENT [place] [facility] Encounters Start End Encounter Admission Attending Care Care Encounter Source Date/Time Date/Time Type Type Clinicians Facility Department ID 2022-09-[address] [facility] [id number] [place] 01:57:25 [id number] [facility] 2022-08-31 2022-09-03 Emergency Niko Holt TRAUMA [id number] Univers 17:46:00 13:38:00 Forrest Manley [id number] ity Rufus Doran [id number] [place] Donna Huerta [id number] [facility] Makayla Kennedy[address] Cj Diop 2022-08-31 2022-09-03 Emergency X DONNA HUERTA [facility] ERT 1 [id number] Univers 17:46:00 13:38:00 DONNA HUERTA [facility] Results Test Description Test Time Test Comments Results Result Comments Source POCT GLUCOSE (AUTOMATED) 2022-09-01 20:04:59 Test Item Value Reference Range Interpretation Comme nts POCT GLU (test code = 7247047151) 104 mg/dL 70-110 Lab Interpretation (test code = 60663-4) [facility] 15:38:08 Test Item Value Reference Range Interpretation Comments POCT GLU (test code = 9390169042) 110 mg/dL 70-110 Lab Interpretation (test code = Normal 03795-5) [facility]-01 02:37:19 Test Item Value Reference Range Interpretation Comments POCT GLU (test code = 7981305564) 114 mg/dL 70-110 H Lab Interpretation (test code = Abnormal 96128-2) [facility]
[2023-04-25] MEDS ORDERED: LORazepam 2 MG/ML VIAL ONE (02:04)
[2023-04-25] MEDS ORDERED: DIPHENHYDRAMINE 50 MG/ML VIAL ONE (02:04)
[2023-04-25 02:07] LABS: Absolute Lymphocytes (CBC) 3.4 K/uL (0.7-4.9); Hematocrit 39.8 % (36.0-45.0); Lymphocytes % 25.4 % (15.3-44.8); MCV 97.3 fL (80-100); Platelets 266 thou/uL (152-406); RBC Red Blood Cell Count 4.09 M/uL (3.86-4.86)
[2023-04-25 02:08] LABS: Specific Gravity 1.006 (1.005-1.030)
[2023-04-25 02:15] LABS: Barbiturates NEGATIVE (NEGATIVE); Benzodiazepines NEGATIVE (NEGATIVE); Cocaine NEGATIVE (NEGATIVE); METHAMPHETAM NEGATIVE (NEGATIVE); Methadone ND (NEGATIVE); Opiates NEGATIVE (NEGATIVE); Phencyclidine NEGATIVE (NEGATIVE); THC Cannibis POSITIVE (NEGATIVE)
[2023-04-25 02:26] LABS: ALT/SGPT 189 U/L (13-56); Albumin 3.5 g/dL (3.4-5.0); Alkaline Phosphatase 69 U/L (45-117); BUN Blood Urea Nitrogen 5 mg/dL (7-18); Bicarbonate 22 mEq/L (21-32); Bilirubin Direct 0.1 mg/dL (0-0.2); Bilirubin Indirect, Calculated 0.6 mg/dL (0.2-0.8); Bilirubin Total 0.7 mg/dL (0.2-1.0); Glomerular Filtration Rate 119 ml/min (=/>90); Glucose Level 160 mg/dL (74-106); Protein, Total 8.5 g/dL (6.4-8.2); Sodium Level 137 mEq/L (136-145)
[2023-04-25 02:27] LABS: AST/SGOT 175 U/L (15-37); Potassium 4.3 mEq/L (3.5-5.1)
[2023-04-25 02:29] LABS: Protime INR 1.25
[2023-04-25 02:33] LABS: Specific Gravity 1.006 (1.005-1.030); Urine Bacteria None Seen /HPF (<20); Urine Bilirubin NEGATIVE (Negative); Urine Blood Negative (Negative); Urine Clarity Turbid (Clear); Urine Color Light-Yellow (Yellow); Urine Crystals Unidentified Few /HPF (None Seen); Urine Glucose NEGATIVE (Negative); Urine Mucus Slight /HPF (None Seen); Urine Protein NEGATIVE (Negative); Urine RBC <5 /HPF (None Seen); Urine Urobilinogen Normal (Normal); Urine pH 5.5 (5.0-7.0)
--- NOTE | 2023-04-25 06:15 | EDPHYS ---
Physician Documentation [facility] Name: Wei Davey Age: 33 yrs Sex: Female : 1990 Arrival Date: 04/25/2023 Time: 01:16 Bed 17 Private MD: ED Physician Tony Guerrero HPI: 04/25 01:29 This 33 yrs old Female presents to ER via Unassigned with complaints of SI. ec2 01:29 Patient arrives today due to concern for suicidality. Patient reportedly had ingested ec2 near entire bottle of levothyroxine, 50 mcg, quantity of 30, approximately 2 hours prior to arrival. Patient states that she generally has a bad life and has issues with the family which is what prompted attempt today. Patient reports multiple previous attempts in the past. Also with history of anxiety, depression, Tourette's. Patient arrives on an DEYSI by PD.. 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 - Social history:: Smoking status: Patient denies any tobacco usage or history of. Patient uses alcohol, on a daily basis. street drugs, marijuana. ROS: 01:29 Constitutional: SI ec2 14:27 Constitutional: Negative for fever, chills, and weight loss, Eyes: Negative for injury, torin pain, redness, and discharge, ENT: Negative for injury, pain, and discharge, Neck: Negative for injury, pain, and swelling, Cardiovascular: Negative for chest pain, palpitations, and edema, Respiratory: Negative for shortness of breath, cough, wheezing, and pleuritic chest pain, Abdomen/GI: Negative for abdominal pain, nausea, vomiting, diarrhea, and constipation, Back: Negative for injury and pain, : Negative for injury, bleeding, discharge, and swelling, MS/Extremity: Negative for injury and deformity, Skin: Negative for injury, rash, and discoloration, Neuro: Negative for headache, weakness, numbness, tingling, and seizure, Psych: Negative for depression, anxiety, suicide ideation, homicidal ideation, and hallucinations, Allergy/Immunology: Negative for hives, rash, and allergies, Endocrine: Negative for neck swelling, polydipsia, polyuria, polyphagia, and marked weight changes, Hematologic/Lymphatic: Negative for swollen nodes, abnormal bleeding, and unusual bruising, 14:27 Constitutional: 14:27 Psych: Negative for suicidal ideation, Exam: 01:29 Constitutional: GEN: NAD Head: atraumatic Eyes: EOMI Ears: External ears are ec2 normal. CV: regular rate LUNGS: no respiratory distress ABD: non-distended SKIN: no evidence of rashes MSK: no evidence of trauma NEURO: moves all extremities equally psych: Suicidal thoughts and plan, no homicidality, general depression, flat affect, cooperative Vital Signs: 01:16 BP 92 / 72; Pulse 111; Resp 24 S; Temp 98.4(O); Pulse Ox 97% on R/A; Weight 149.69 kg lg3 (R); Height 5 ft. 8 in. (R); Pain 0/10; 01:55 BP 118 / 81; Pulse 112; Resp 21; Temp 98; Pulse Ox 94% ; bp 04:00 BP 119 / 58; Pulse 96; Resp 21; Pulse Ox 97% ; jj7 06:49 BP 111 / 64; Pulse 95; Resp 20; Pulse Ox 99% ; jj7 13:26 BP 119 / 75; Pulse 86; Resp 18; Pulse Ox 97% on R/A; Pain 0/10; ld1 15:00 BP 120 / 76; Pulse 87; Resp 18; Temp 97.8; Pulse Ox 98% on R/A; ph 01:16 Body Mass Index 50.18 (149.69 kg, 172.72 cm) lg3 01:16 Pain Scale: Adult lg3 13:26 Pain Scale: Adult ld1 MDM: 01:26 Patient medically screened. ec2 01:29 ED course: Patient arrives today for suicide attempt. Examination remarkable for ec2 well-appearing nontoxic dividual is otherwise in no acute distress with minimally tachycardic, not diaphoretic and otherwise well-appearing. Will obtain a psychiatric evaluation and discussed case with poison control. Clinically patient is nontoxic, "levothyroxine, patient is minimally tachycardic, not hypotensive, not diaphoretic and not altered.. 01:39 ED course: EKG independently reviewed and interpreted by me, marked motion artifact ec2 secondary to patient's Tourette's. Shows heart rate of approximately 110, QTc please be less than half the midway between the QRS complexes, certainly no ST elevations noted.. 02:09 ED course: Of note patient meets SIRS criteria however I have a low clinical index ec2 suspicion for acute bacterial infection, accordingly will defer septic work-up. Patient intermittently agitated, did give the patient Ativan and Benadryl which improved the patient's symptoms.. 02:36 ED course: Patient's lab work is remarkable for negative acetaminophen level, metabolic ec2 profile that is generally reassuring, CBC that shows slight leukocytosis, alcohol level elevated at 312, slight LFT abnormality, negative salicylate, urine that is noninfectious appearing, drug screen is positive for THC, negative testing. . 06:15 ED course: Patient lab work-up was generally unrevealing, patient pending psychiatric ec2 evaluation with ethanol level under 200. Obtain multiple ethanol levels and is downtrending, patient signed out to oncoming physician.. 06:16 Data reviewed: vital signs. ec2 14:26 ED course: pt with mom, not suicidal, not homicidal, want outpt follow up. torin 04/25 01:28 Order name: Acetaminophen; Complete Time: 02:35 ec2 04/25 01:28 Order name: Basic Metabolic Panel; Complete Time: 02:35 ec2 04/25 01:28 Order name: CBC with Diff; Complete Time: 02:35 ec2 04/25 01:28 Order name: ETOH Level; Complete Time: 02:35 ec2 04/25 01:28 Order name: Hepatic Function; Complete Time: 02:35 ec2 04/25 01:28 Order name: PT-INR; Complete Time: 02:35 ec2 04/25 01:28 Order name: Test, Urine; Complete Time: 02:35 ec2 04/25 01:28 Order name: Ptt, Activated; Complete Time: 02:35 ec2 04/25 01:28 Order name: Salicylate; Complete Time: 02:35 ec2 04/25 01:28 Order name: Urinalysis w/ reflexes; Complete Time: 02:35 ec2 04/25 01:28 Order name: Urine Drug Screen; Complete Time: 02:35 ec2 04/25 03:52 Order name: Alcohol Level; Complete Time: 05:02 ec2 04/25 05:27 Order name: Ethanol; Complete Time: 06:08 ec2 04/25 06:36 Order name: Ethanol; Complete Time: 14:28 ec2 04/25 01:28 Order name: EKG; Complete Time: 01:29 ec2 04/25 09:35 Order name: EKG Electrocardiogram EDMS 04/25 01:28 Order name: EKG - Nurse/Tech; Complete Time: 02:15 ec2 04/25 01:28 Order name: IV Saline Lock; Complete Time: 02:15 ec2 04/25 01:28 Order name: Labs collected and sent; Complete Time: 02:15 ec2 04/25 01:28 Order name: Suicide Precautions; Complete Time: 02:15 ec2 04/25 01:28 Order name: Suicide Screening ([place]); Complete Time: 02:15 ec2 Administered Medications: 01:55 Drug: Ativan IVP 2 mg IVP once Route: IVP; Site: right hand; bp 01:55 Drug: diphenhydrAMINE IVP 50 mg IVP once Route: IVP; Site: right hand; bp 14:22 Drug: Albuterol Inhalation 2.5 mg Inhalation once Route: Inhalation; mb9 14:44 Follow up: Response: No adverse reaction ph Disposition Summary: 04/25/23 14:31 Discharge Ordered Notes: Location: Home torin Problem: new(04/25/23 14:31) torin Symptoms: have improved(04/25/23 14:31) torin Condition: Stable(04/25/23 14:31) torin Diagnosis - Adjustment disorder with depressed mood torin - Suicidal ideations - resolved(04/25/23 14:31) torin Followup: torin - With: Private Physician - When: 2 - 3 days - Reason: Recheck today's complaints, Continuance of care, Re-evaluation by your physician Followup: torin - With: Cali Gill MD - When: 2 - 3 days - Reason: Recheck today's complaints, Re-evaluation by your physician Discharge Instructions: - Discharge Summary Sheet torin - Adjustment Disorder, Adult torin - Suicidal Feelings: How to Help Yourself torin - Helping Someone Who is Suicidal torin - Stress, Adult torin Forms: - Medication Reconciliation Form torin - Thank You Letter torin - Antibiotic Education torin - Prescription Opioid Use torin - Patient Portal Instructions torin - Leadership Thank You Letter torin Critical care time excluding procedures: 14:27 Critical care time: Bedside Care: 30 minutes, Consultation: 15 minutes, Family torin Intervention: 10 minutes. Total time: 55 minutes Signatures: Dispatcher [employer] Tony Beyer MD MD cha Peltier, Brian, RN RN bp Erica Campos RN RN lg3 Manasa Cotto RN RN mb9 Devyn Webb MD MD ec2 Sari Luna RN ph Corrections: (The following items were deleted from the chart) 01:31 01:29 Patient arrives today due to concern for suicidality. Patient reportedly had ec2 ingested near entire bottle of levothyroxine, 50 mcg, quantity of 30, approximately 2 hours prior to arrival. Patient states that she generally has a bad life and has issues with the family which is what prompted attempt today. Patient reports multiple previous attempts in the past. Also with history of anxiety, depression, Tourette's.. 2 14:28 06:15 psych facility ec2 [facility] 14:28 06:15 Psych Facility ec2 [facility] 14: 06:15 Higher level of care ec2 [facility] 14: 06:15 Stable ec2 [facility] 14: 06:15 new 2 [facility] 14: 06:15 are unchanged ec2 [facility] 14: 06:15 Suicidal ideations ec2 [facility]
--- NOTE | 2023-04-25 06:15 | ER ---
Nurse's Notes [facility] Name: Wei Davey Age: 33 yrs Sex: Female : 1990 Arrival Date: 04/25/2023 Time: 01:16 Bed 17 Private MD: Diagnosis: Adjustment disorder with depressed mood;Suicidal ideations-resolved Presentation: 04/25 01:16 Chief complaint: Patient states: took 30 50MCG Levoxyl at roughly 2330 with a bottle of lg3 red wine. i have tried multiple times to kill myself but somehow im still here. a few months ago i tried to shoot myself in the head with my cousins gun but it jammed. i have been in and out of psych facility's my entire life. my anxiety and suicidal ideations are constant but today they were triggered by my dads new diagnosis of chiari malformation. Coronavirus screen: Client denies travel out of the [place] in the last 14 days. At this time, the client does not indicate any symptoms associated with coronavirus-19. Ebola Screen: No symptoms or risks identified at this time. Initial Sepsis Screen: Does the patient meet any 2 criteria? No. Patient's initial sepsis screen is negative. Does the patient have a suspected source of infection? No. Patient's initial sepsis screen is negative. Risk Assessment: Do you want to hurt yourself or someone else? Patient reports desire/thoughts of hurting themselves or someone else. Provider notified. Onset of symptoms was April 24, 2023. 01:16 Method Of Arrival: EMS: [facility] lg3 01:16 Acuity: ROBERTO 2 lg3 Triage Assessment: 01:16 General: Appears in no apparent distress. Behavior is cooperative, anxious. Pain: lg3 Denies pain. 01:16 EENT: No deficits noted. No signs and/or symptoms were reported regarding the EENT lg3 system. Neuro: Eugene Agitation-Sedation Scale (RASS): +1 Restless Level of Consciousness is awake, alert, obeys commands, Oriented to person, place, time, situation, inappropriate affect. Cardiovascular: No deficits noted. Denies chest pain, shortness of breath, Capillary refill < 3 seconds Clubbing of nail beds is absent JVD is absent Patient's skin is warm and dry. Respiratory: No deficits noted. Airway is patent Respiratory effort is even, Respiratory pattern is tachypnea. GI: No deficits noted. No signs and/or symptoms were reported involving the gastrointestinal system. Abdomen is round non-distended, obese. : No deficits noted. No signs and/or symptoms were reported regarding the genitourinary system. Derm: No signs and/or symptoms reported regarding the dermatologic system. Skin is intact, is healthy with good turgor, Skin is diaphoretic, Skin is normal, Skin temperature is warm. Musculoskeletal: No deficits noted. No signs and/or symptoms reported regarding the musculoskeletal system. Circulation, motion, and sensation intact. Range of motion: intact in all extremities. 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 - Social history:: Smoking status: Patient denies any tobacco usage or history of. Patient uses alcohol, on a daily basis. street drugs, marijuana. Screenin:16 [facility] ED Fall Risk Assessment (Adult) History of falling in the last 3 months, lg3 including since admission No falls in past 3 months (0 pts) Confusion or Disorientation No (0 pts) Intoxicated or Sedated Yes (3 pts) Impaired Gait No (0 pts) Mobility Assist Device Used No (0 pt) Altered Elimination No (0 pt) Score/Fall Risk Level 0 - 2 = Low Risk Oriented to surroundings, Maintained a safe environment, Educated pt \\T\\ family on fall prevention, incl call for assistance when getting out of bed, Assessed \\T\\ reinforced patient's understanding of fall precautions. Abuse screen: Denies threats or abuse. Denies injuries from another. Nutritional screening: No deficits noted. Tuberculosis screening: No symptoms or risk factors identified. Assessment: 01:16 General: see triage assessment. lg3 01:49 General: poison control . no recommendations at this time . as6 02:40 Reassessment: Patient is alert, oriented x 3, equal unlabored respirations, skin jj7 warm/dry/pink. ASSUMED CARE OF PT. PT IN BED SPEAKING TO HER MOTHER. SITTER OUTSIDE DOOR. VS STABLE. ROOM CLEARED BY [email or web address]. NO NEEDS AT THIS TIME. 04:40 Reassessment: PT RESTING COMFORTABLE IN BED. NO DISTRESS NOTED. VS STABLE. MOTHER jj7 ASLEEP AT BEDSIDE. 06:49 Reassessment: PT SLEEPING. NO DISTRESS NOTED. VS STABLE. MOTHER AT BEDSIDE. jj7 07:15 Reassessment: Patient appears in no apparent distress at this time. Patient is alert, ph oriented x 3, equal unlabored respirations, skin warm/dry/pink. Patient is alert/active/playful, equal unlabored respirations, skin warm/dry/pink. Patient states symptoms have improved. pt asleep w/ equal respirations, mother at bedside, VSS. 13:26 General: Appears in no apparent distress. comfortable, Behavior is calm, cooperative, ld1 appropriate for age. Pain: Denies pain. Neuro: Level of Consciousness is awake, alert, obeys commands, Oriented to person, place, time, situation. Cardiovascular: Capillary refill < 3 seconds Patient's skin is warm and dry. Rhythm is sinus rhythm. Respiratory: Airway is patent Respiratory effort is even, unlabored. 14:05 Reassessment: Pt requesting breathing tx, Dr Guerrero notified and at bedside to speak ph w/ pt, pt states that she is no longer feeling suicidal, " I had too much to drink and wasn't in my right mind." Pt and her mother both stated to Dr Guerrero that they feel safe with her being discharged home and following outpatient for therapy. Pt states that she will staying with her mother until she can follow up. Pt provided w/ information for [facility] and other community resources. Vital Signs: 01:16 BP 92 / 72; Pulse 111; Resp 24 S; Temp 98.4(O); Pulse Ox 97% on R/A; Weight 149.69 kg lg3 (R); Height 5 ft. 8 in. (R); Pain 0/10; 01:55 BP 118 / 81; Pulse 112; Resp 21; Temp 98; Pulse Ox 94% ; bp 04:00 BP 119 / 58; Pulse 96; Resp 21; Pulse Ox 97% ; jj7 06:49 BP 111 / 64; Pulse 95; Resp 20; Pulse Ox 99% ; jj7 13:26 BP 119 / 75; Pulse 86; Resp 18; Pulse Ox 97% on R/A; Pain 0/10; ld1 15:00 BP 120 / 76; Pulse 87; Resp 18; Temp 97.8; Pulse Ox 98% on R/A; ph 01:16 Body Mass Index 50.18 (149.69 kg, 172.72 cm) lg3 01:16 Pain Scale: Adult lg3 13:26 Pain Scale: Adult ld1 ED Course: 01:16 Safety Checks: Personal items have been removed. The door is open or patient has been lg3 placed in a hallway bed/chair. There are no family/friend visitors at this time Sitter present at this time. 01:16 Arm band placed on left wrist. lg3 01:16 Patient has correct armband on for positive identification. Placed in gown. Bed in low lg3 position. Side rails up X2. Valuables inventory done. Given to family. See valuables checklist. DEYSI on file. Client placed on continuous cardiac and pulse oximetry monitoring. NIBP monitoring applied. classification analyst on. Noise minimized. Visitors limited. Warm blanket given. Patient is placed in psych hold. 01:16 Maintain EMS IV. Dressing intact. Good blood return noted. Site clean \\T\\ dry. Gauge \\T\\ lg 3 site: 22 R Hand. Patient maintains SpO2 saturation greater than 95% on room air. 01:26 Patient arrived in ED. sb4 01:26 Devyn Webb MD is Attending Physician. ec2 01:48 Niko Giles, BENNY is Primary Nurse. bp 02:07 Triage completed. lg3 03:02 Oxygen administration via nasal cannula \\T\\ 2L/min Response to oxygen therapy: symptoms kmf improved. 04:46 Alcohol Level Sent. kmf 05:47 Ethanol Sent. jj7 12:37 Screener requested through the [facility] crisis line. em1 14:16 Attending Physician role handed off by Devyn Webb MD torin 14:16 Tony Guerrero MD is Attending Physician. torin 14:30 Cali Gill MD is Referral Physician. torin 15:15 IV discontinued, intact, bleeding controlled, No redness/swelling at site. Pressure ph dressing applied. 15:15 No provider procedures requiring assistance completed. ph Administered Medications: 01:55 Drug: Ativan IVP 2 mg IVP once Route: IVP; Site: right hand; bp 01:55 Drug: diphenhydrAMINE IVP 50 mg IVP once Route: IVP; Site: right hand; bp 14:22 Drug: Albuterol Inhalation 2.5 mg Inhalation once Route: Inhalation; mb9 14:44 Follow up: Response: No adverse reaction ph Medication: 14:05 VIS not applicable for this client. ph Outcome: 06:15 ER care complete, transfer ordered by . ec2 14:31 Discharge ordered by . torin 15:20 Patient left the ED. ph 15:20 Discharged to home ambulatory, with family, ph 15:20 Condition: good 15:20 Discharge instructions given to patient, family, Instructed on discharge instructions, follow up and referral plans. Demonstrated understanding of instructions, follow-up care, Signatures: Tony Guerrero MD MD cha Martinez, Eric em1 Sari Luna RN RN Niko Giles, RN RN bp Erica Campos RN RN lg3 Lynsey Gutierrez RN RN ld1 Geovany Sexton RN RN as6 Jeff Jones RN RN [email or web address] Nevarez, PA-C PA-C [email or web address] Manasa Cotto RN RN mb9 Devyn Webb MD MD ec2 Forrester, Kelsey Mar[facility] Corrections: (The following items were deleted from the chart) 01:50 01:49 General: poison control . as6 as6 02:13 01:16 BP 92 / 72; Pulse 111bpm; Resp 19bpm; Spontaneous; Pulse Ox 97% RA; Temp 98.4F lg3 Oral; 149.69 kg Reported; Height 5 ft. 8 in. Reported; BMI: 50.1; Pain 0/10, Adult; lg3
--- NOTE | 2023-04-25 13:36 | EKG ---
Test Date: 2023-04-25 Test Time: 02:27:57 Box Blank Machine Feeder: JOSEFA MEASUREMENT RESULTS: Intervals: Rate: 102 ID: [id number] QRSD: 90 QT: 382 QTc: 497 [place]: P: 44 ID: [id number] QRS: 1 T: 83 INTERPRETIVE STATEMENTS: Sinus tachycardia Cannot rule out Anterior infarct, age undetermined T wave abnormality, consider lateral ischemia Abnormal ECG Compared to ECG 04/25/2023 01:33:50 T-wave abnormality now present Possible ischemia now present Myocardial infarct finding still present Electronically Signed On 04-25-23 13:35:36 CDT by Isael Marion
--- NOTE | 2023-04-25 13:36 | EKG ---
Test Date: 2023-04-25 Test Time: 01:33:50 Environmental Marketing Representative: JOSEFA MEASUREMENT RESULTS: Intervals: Rate: 122 VT: 152 QRSD: 86 QT: 398 QTc: 567 [place]: P: 52 VT: 152 QRS: 1 T: 85 INTERPRETIVE STATEMENTS: Sinus tachycardia with PVCs Cannot rule out Anterior infarct, age undetermined Abnormal ECG Compared to ECG 09/29/2017 12:38:52 Myocardial infarct finding now present Left ventricular hypertrophy no longer present Electronically Signed On 04-25-23 13:36:03 CDT by Isael Marion
[2023-04-25] MEDS ORDERED: ALBUTEROL 2.5 MG/3 ML NEB SOL ONE (14:31)
[2023-04-25 15:35] VITALS: TEMP 98
[2023-04-25 15:38] VITALS: BP 119/75; O2SAT 97
== END 2023-04-25 15:20 | disposition home or self-care (01) ==
LOC: ER 01:16
DX: F43.21 Adjustment disorder with depressed mood (principal)
CPT/HCPCS: 36415; 80048; 80076; 80143; 80179; 80307; 81001; 81025; 82077; 85025; 85610; 85730; 93005; 96374; 96375; 99285; J1200; J7613